=== PATIENT | female | born 1950 ===

== ENCOUNTER 2017-01-16 07:17 | Emergency (ER) | payer MEDICARE, MEDICAID ==
[2017-01-16 07:28] VITALS: BMI 25.6
[2017-01-16 07:29] VITALS: RESP 20
--- NOTE | 2017-01-16 08:12 | C.PDOC ---
History Of Present Illness 66 y/o female presents to ED with complaints of pelvic pain with radiation to lower back for x2 weeks. Patient states she saw PMD 2 weeks ago for superpubic pain and dysuria for which she was given Nitrofurantoin. Patient reports dysuria is now better but back pain is still constant and has taken Tylenol that alleviates but pain comes back. Patient denies fever, N/V/D, chills or any other complaints at this time. Pain is 8/10, constant, worst at night. Denies trauma. Time Seen by Provider: 01/16/17 07:42 Chief Complaint (Nursing): Back Pain History Per: Patient History/Exam Limitations: no limitations Onset/Duration Of Symptoms: Days Current Symptoms Are (Timing): Still Present Quality Of Discomfort: Dull Past Medical History Reviewed: Historical Data, Nursing Documentation, Vital Signs Vital Signs: Last Vital Signs Temp 98.8 F 01/16/17 08:54 Pulse 79 01/16/17 08:54 Resp 20 01/16/17 08:54 BP 139/80 01/16/17 08:54 Pulse Ox 100 01/16/17 08:54 Family History: States: No Known Family Hx Review Of Systems Except As Marked, All Systems Reviewed And Found Negative. Constitutional: Negative for: Fever, Chills Cardiovascular: Negative for: Chest Pain Gastrointestinal: Negative for: Nausea, Vomiting, Diarrhea Genitourinary: Positive for: Pelvic Pain Musculoskeletal: Positive for: Back Pain Skin: Negative for: Rash Neurological: Negative for: Weakness, Headache Physical Exam - Physical Exam Appears: Non-toxic, No Acute Distress Skin: Normal Color, Warm Head: Atraumatic, Normacephalic Eye(s): bilateral: Normal Inspection Oral Mucosa: Moist Gastrointestinal/Abdominal: No Guarding, No Rebound, Other (Epigastric Discomfort) Back: No CVA Tenderness, No Paraspinal Tenderness Extremity: Normal ROM Neurological/Psych: Oriented x3, Normal Speech ED Course And Treatment O2 Sat by Pulse Oximetry: 97 (RA) Pulse Ox Interpretation: Normal Disposition Counseled Patient/Family Regarding: Studies Performed, Diagnosis, Need For Followup, Rx Given - Disposition Disposition: HOME/ ROUTINE Disposition Time: 09:02 Condition: STABLE Additional Instructions: Leonides un seguimiento con santos mdico. Sohail Motrin para el dolor de espalda. Maalox ayudar a proteger [facility]. 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 MD/DO has examined the patient and agrees with the treatment plan. - Scribe Statement The provider has reviewed the documentation as recorded by the Donteibrachel Gee All medical record entries made by the Richard were at my direction and personally dictated by me. I have reviewed the chart and agree that the record accurately reflects my personal performance of the history, physical exam, medical decision making, and the department course for this patient. I have also personally directed, reviewed, and agree with the discharge instructions and disposition.
[2017-01-16 08:23] LABS: RBC URINE < 1 /hpf (0-3); URINE BACTERIA RARE (<OCC); URINE BILIRUBIN NEGATIVE (NEGATIVE); URINE BLOOD NEGATIVE (NEGATIVE); URINE COLOR Amber (YELLOW); URINE GLUCOSE (UA) NORMAL (Normal); URINE HYALINE CAST 0-2 /lpf (0-2); URINE KETONE NEGATIVE (NEGATIVE); URINE LEUKOCYTE ESTERASE 1+ Leu/uL (Negative); URINE PROTEIN NEGATIVE (NEGATIVE); URINE UROBILINOGEN NORMAL mg/dL (0.2-1.0); WBC URINE 4 /hpf (0-5)
[2017-01-16 08:55] VITALS: BP 139/80; PULSE 79; TEMP 98.8
[2017-01-16] MEDS ORDERED: Aluminum Hydroxide/Magnesium Hydroxide Susp (30 mL) PO STA (09:01)
[2017-01-16 09:03] VITALS: O2SAT 97
[2017-01-16] MEDS ORDERED: Aluminum Hydroxide/Magnesium Hydroxide Susp (30 mL) ONE (09:19)
== END 2017-01-16 09:26 | disposition home or self-care (01) ==
LOC: C.ER 07:17
DX: M54.5 Low back pain (principal)